=== PATIENT | female | born 1945 | race Two or more races ===

== ENCOUNTER 2020-05-25 21:14 | Emergency (ER) | payer MEDICARE, MEDICAID ==
[~2020-05-25] VITALS: Ht 172.7 cm; Wt 68.0 kg
[2020-05-26] MEDS ORDERED: ONDANSETRON ODT 4 MG TAB PO ONE (02:30)
[2020-05-26] MEDS ORDERED: HYDROcodone-ACET 10/325MG TAB PO ONE (02:30)
[2020-05-26 03:47] VITALS: BP 131/80
== END 2020-05-26 03:49 | disposition home or self-care (01) ==
LOC: ER 21:14 → EDBD 21:14 → ER 05-26 03:49
DX: S22.059A Unspecified fracture of T5-T6 vertebra, initial encounter for closed fracture (principal); I10 Essential (primary) hypertension; M54.5 Low back pain; F41.9 Anxiety disorder, unspecified; R07.89 Other chest pain; V87.8XXA Person injured in other specified noncollision transport accidents involving motor vehicle (traffic), initial encounter; Y93.55 Activity, bike riding; Y92.488 Other paved roadways as the place of occurrence of the external cause; Y99.8 Other external cause status
CPT/HCPCS: 71250; 72128; 72131; 93005; 99285; Q0162